=== PATIENT | male | born 1995 | race Caucasian/White ===

== ENCOUNTER 2016-07-19 12:07 | Emergency (ER) | payer BC ==
[~2016-07-19] VITALS: Ht 175.3 cm; Wt 85.3 kg
[2016-07-19 12:10] VITALS: TEMP 98.3; Ht 175.3 cm; Wt 85.3 kg
--- OUTSIDE RECORDS SUMMARY | 2016-07-19 12:10 | XMS REPORT | Continuity of Care Document ---
Author Author [facility] Address Unknown Phone Unavailable Allergies Active Description Code Type Severity Reaction Onset Reported/Identified Relationship to Patient Clinical Status Yes No Known Allergies [id number] N/A N/A Yes No Known Drug Allergies [id number] Drug Allergy Unknown N/ A 04/29/2015 Medications Problems Date Dx Coded Attending Type Code Diagnosis Diagnosed By 04/30/2015 RICHARD REYNAGA, JESSICA P Ot M25.572 04/30/2015 RICHARD REYNAGA, JESSICA P Ot S93.402A 04/30/2015 RICHARD REYNAGA, JESSICA P Ot W00.0XXA 04/30/2015 RICHARD REYNAGA, JESSICA P Ot Y92.481 04/30/2015 RICHARD REYNAGA, JESSICA P Ot Y93.02 05/13/2015 W M79.662 Pain of left fibula 05/13/2015 W S82.55XA Closed nondisplaced fracture of medial malleolus of left tibia, initial encounter 05/15/2015 W M79.662 Pain of left fibula 05/15/2015 W S82.55XA Closed nondisplaced fracture of medial malleolus of left tibia, initial encounter 05/22/2015 W M79.662 Pain of left fibula 05/22/2015 W S82.55XA Closed nondisplaced fracture of medial malleolus of left tibia, initial encounter 05/26/2015 RAYMON REYNAGA, JUAN Ot S82.55XA 05/26/2015 RAYMON REYNAGA, JUAN Ot X58.XXXA 06/19/2015 W M79.662 Pain of left fibula 06/19/2015 W S82.55XA Closed nondisplaced fracture of medial malleolus of left tibia, initial encounter 07/03/2015 W M79.662 Pain of left fibula 07/03/2015 W S82.55XA Closed nondisplaced fracture of medial malleolus of left tibia, initial encounter 07/16/2015 RAYMON REYNAGA, JUAN Ot S82.55XA 07/16/2015 RAYMON REYNAGA, JUAN Ot X58.XXXA 2015 W Z48.89 Encounter for other specified surgical aftercare Procedures Code [place] [address] X-RAY EXAM OF LOWER LEG 05/11/2015 55144 OFFICE/OUTPATIENT VISIT EST 05/11/2015 L4386 Non-pneum walk boot prefab 05/11/2015 89207 OPTX MEDIAL ANKLE FX 05/14/2015 95102 FLUOROSCOPE EXAMINATION 05/14/2015 79784 X-RAY EXAM OF LOWER LEG 06/19/2015 46152 X-RAY EXAM OF ANKLE 06/19/2015 55559 POSTOP FOLLOW-UP VISIT 06/19/2015 Results Encounters ACCT No. Visit Date/Time Discharge Status Pt. Type Provider Facility Loc./Unit Complaint [id number] 04/29/2015 23:45:00 2015 00:46:00 DIS Emergency RICHARD REYNAGA, [facility] ED [id number] 05/12/2015 13:55:00 ACT Outpatient RAYMON REYNAGA, [facility] RAD
--- OUTSIDE RECORDS SUMMARY | 2016-07-19 12:17 | XMS REPORT | Continuity of Care Document ---
Author Author [facility] Address Unknown Phone Unavailable Allergies Active Description Code Type Severity Reaction Onset Reported/Identified Relationship to Patient Clinical Status Yes No Known Allergies [id number] 3 N/A N/A Yes No Known Drug Allergies [id number] Drug Allergy Unknown N/ A 04/29/2015 Medications [...] REYNAGA, JUAN Ot S82.55XA 05/26/2015 RAYMON REYNAGA, JAUN Ot X58.XXXA 06/19/2015 W M79.662 Pain of [...] Procedures Code Description [place] [address] X-RAY EXAM OF LOWER LEG 05/11/2015 07625 OFFICE/OUTPATIENT VISIT EST 05/11/2015 L4386 Non-pneum walk boot prefab 05/11/2015 03799 OPTX MEDIAL ANKLE FX 05/14/2015 63432 FLUOROSCOPE EXAMINATION 05/14/2015 21873 X-RAY EXAM OF LOWER LEG 06/19/2015 19717 X-RAY EXAM OF ANKLE 06/19/2015 91919 POSTOP FOLLOW-UP VISIT 06/19/2015 Results Encounters ACCT No. Visit Date/Time Discharge Status Pt. Type Provider Facility Loc./Unit Complaint [id number] 04/29/2015 23:45:00 2015 00:46:00 DIS Emergency RICHARD REYNAGA, [facility] ED [id number] 05/12/2015 13:55:00 ACT Outpatient RAYMON REYNAGA, [facility] RAD
--- NOTE | 2016-07-19 12:49 | ERPDOC ---
Departure Disposition Decision Date: Jul 19, 2016 Disposition Decision Time: 13:04 (RUIZ RILEY APRN) Disposition: 01 DISCHARGED HOME, SELF-CARE Impression Impression (RUIZ RILEY APRN) Impression: Primary Impression: Finger laceration Encounter type: initial encounter Qualified Codes: S61.219A - Laceration without foreign body of unspecified finger without damage to nail, initial encounter Severity: Moderate (RUIZ RILEY FILTER PRESS TENDER) Condition: Stable Seen By: Mid-level only (RUIZ RILEY APRN) Patient Instructions: Finger Laceration (ED) Problems/Meds/Labs Reviewed?: Yes Medications reviewed and manag: Yes (BEGUMESA Jung FILTER PRESS TENDER) Additional Instructions: Wash the area daily with soap and water. Your tetanus today was updated in ER. Have the sutures taken out in about 14 days with your primary care provider's office. If any other concerns then return to ER. Follow up care ordered?: Yes Mental Status: Alert (RUIZ RILEY APRN) HPI - Skin General General Chief Complaint: Laceration Stated Complaint: FINGER LAC Time Seen by Provider: 12:13 Source: patient Exam Limitations: no limitations (RUIZ RILEY APRN) Time Seen by Provider: 12:13 (MALORIE ANAND MD) HPI - Skin General Initial Comments He goes to school at [employer] and is learning how to restore old cars. He was working on a car today and his hand slipped. He hit his hand on a car part and has a small flap laceration on the middle finger over the PIP joint on the right hand. Is here for laceration repair. Does not know for sure when his last TDAP was. Occurred At: school Onset: Rapid Duration: 1 hr Severity: mild Location: extremities Associated Symptoms: denies symptoms Hx of Similar Symptoms: No (NOLIBBY,RUIZ N FILTER PRESS TENDER) Allergies: Coded Allergies: No Known Allergies (Unverified , 07/19/16) Past History Past Medical History Pt denies signifigant PMH (ROSEMARY,RUIZ N FILTER PRESS TENDER) Surgical History Denies Surgeries (RUIZ RILEY FILTER PRESS TENDER) Family History Family History: Negative (RUIZ RILEY APRN) Social History Smoking Status: Never smoker Substance Use Type: does not use Alcohol Intake: none (BEGUMESA N FILTER PRESS TENDER) Review of Systems Musculoskeletal General: DENIES: joint pain, joint swelling, pain, tenderness (BEGUMESA N FILTER PRESS TENDER) Integumentary Skin: other (flap laceration on finger over PIP joint) (BEGUMESA N FILTER PRESS TENDER) Physical Exam General General Nourishment: well nourished, well developed, appears stated age, no acute distress, adult General Body Habitus: well groomed (BEGUMESA N FILTER PRESS TENDER) Vitals and Pain First Documented Vital Signs Date Time Temp Pulse Resp B/P Pulse Ox O2 Delivery O2 Flow Rate FiO2 07/19/16 12:10 98.3 88 14 121/73 100 Room Air (MALORIE ANAND MD) Vitals and Pain Weight: Kilograms: 85.300 Height (feet): 5 Height (inches): 9.00 Triage Pain Scale: (BEGUMESA N FILTER PRESS TENDER) RN VS reviewed by Provider: Yes (RUIZ RILEY FILTER PRESS TENDER) Normal Exams: Neurologic: Patient is alert, and oriented Psychiatric: Patient exhibits, appropriate attention, emotion and affect (ROSEMARYRUIZ N FILTER PRESS TENDER) Musculoskeletal (brief) Musculoskeletal Brief: NOT FOUND: deformity, loss of motion, spasm, tenderness (BEGUMESA N FILTER PRESS TENDER) Integumentary (brief) Integumentary Brief: FOUND: other (flap laceration on finger on ) (ROSEMARYRUIZ N FILTER PRESS TENDER) Differential Diagnoses Considering: Laceration, Other (tendon injury, finger fracture) (BEGUMESA N FILTER PRESS TENDER) Procedures Procedures Performed Procedures Performed: Laceration Repair (BEGUMESA N FILTER PRESS TENDER) Laceration/Wound Repair Wound/Laceration Repair : Wound Location: upper extremity (right hand, middle finger) Wound Length (cm): 1 Depth, Shape: superficial, flap Explored: clean Irrigated: saline Prep: chlorasept Anesthesia: 1% Lidocaine Repaired With: Sutures Suture Size: 5:0 Suture Type: prolene Number of Sutures: 3 Layer Closure?: No (BEGUMESA N FILTER PRESS TENDER) Progress Results/Orders Orders Procedure Category Date Status Time Lidocaine 1% PHA 07/19/16 Complete (Xylocaine 1%) 13:00 Tetanus,Diphth,A PHA 07/19/16 Complete Pertus (Tdap) (Adacel) 13:00 (MALORIE ANAND MD) Medications Current ED Medications Lidocaine HCl (Xylocaine 1%) 100 mg O ONCE INFIL ; Start 07/19/16 at 13:00; Stop 07/19/16 at 13:01; Status DC Diphtheria/ Tetanus/Acell Pertussis (Adacel) 0.5 ml O ONCE IM Last administered on 07/19/16t 13:05; Start 07/19/16 at 13:00; Stop 07/19/16 at 13:01 ; Status DC (MALORIE ANAND MD) Progress Progress Sutures out in the next 14 days with PCP. Will have him wash daily with soap and water. (RUIZ RILEY APRN) Progress Patient's history and exam discussed with FILTER PRESS TENDER. Agree with care given. (MALORIE ANAND MD) RUIZ RILEY APRN Jul 19, 2016 12:49 MALORIE ANAND MD Jul 19, 2016 14:57
[2016-07-19] MEDS ORDERED: LIDOCAINE 1% (10mg/ml) 30ml SDV INFIL ONE (13:00)
[2016-07-19] MEDS ORDERED: TETANUS,DIPHTH,a PERTUS (Tdap) 0.5 ML VIAL IM ONE (13:00)
[2016-07-19] MEDS ORDERED: NO ROUTINE MEDS (13:15)
[2016-07-19 13:30] VITALS: BP 115/73; PULSE 70; RESP 16; O2SAT 98
== END 2016-07-19 13:33 | disposition home or self-care (01) ==
LOC: ED 12:07
DX: S61.212A Laceration without foreign body of right middle finger without damage to nail, initial encounter (principal); W22.09XA Striking against other stationary object, initial encounter; Y93.89 Activity, other specified; Y92.214 College as the place of occurrence of the external cause; Y99.8 Other external cause status
CPT/HCPCS: 90715